=== PATIENT | male | born 1980 | race Caucasian/White ===

== ENCOUNTER 2017-03-23 14:45 | Emergency (ER) | payer OTHER, MEDICAID ==
[~2017-03-23] VITALS: Ht 175.3 cm; Wt 55.3 kg
[~2017-03-23 14:45] MED LIST: ANDROGEL2.5 G1 TD; AUGMENTIN 875875 MG PO; BENTYL20 MG PO; CLONAZEPAM; CLONAZEPAM 0.50.5 M1 PO; CREON 10 CAPSUL1 CA1 PER TUBE; CREON 10 CAPSUL1 CA1 PO; FENTANYL PA50 MCG/HR INTRADERM; FENTANYL PATCH75 MCG TRANSDERM; FLEXERIL PO; IBUPROFEN 600600 M1 PO; IBUPROFEN 800800 M1 PO; KEFLEX500 MG PO; LEVAQUIN 500 M500 MG PO; LIORESAL 10 MG10 MG PO; LISINOPRIL10 MG PO; MACROBID 100 M100 M1 PO; MEDROLDOSEPACK PO; MIRALAX17 GM PO; NORCO 5-325 TA1 EAC1 PO; NORCO 5-325 TA1 EACH PO; NORVASC5 MG PO; OXYCODONE HCL 55 MG PO; OXYCODONE HCL15 MG PO; OXYCONTIN10 M1 PO; OXYCONTIN30 MG PO; PANCREAZE 21,01 EACH PO; PAXIL20 MG PO; PERCOCET 5-3251 EACH PO; POTASSIUM20 PO; PRILOSEC 20 MG20 MG; PRILOSEC40 MG PO; PROAIR HFA8.5 GM INH; PYRIDIUM200 MG PO; ZANTAC 150MG T150 M1 PO; ZOFRAN ODT4 MG PO
[2017-03-23] MEDS ORDERED: SUBOXONE 8 MG-1 EAC3 PO (15:02)
[2017-03-23 15:33] LABS: ABSOLUTE BASOPHILS 0.1 thou/uL (0.0-0.2); ABSOLUTE EOSINOPHILS 0.3 thou/uL (0.0-0.7); ABSOLUTE LYMPHOCYTES 4.4 thou/uL (0.8-5.3); ABSOLUTE MONOCYTES 0.9 thou/uL (0.0-1.2); ABSOLUTE NEUTROPHILS 5.3 thou/uL (1.6-8.1); BASOPHILS 0.8 %; EOSINOPHILS 2.5 %; HEMATOCRIT 43.5 % (42.0-52.0); HEMOGLOBIN 14.7 gm/dL (14.0-18.0); LYMPHOCYTES 39.8 %; MCH 30.3 pg (26.0-34.0); MCHC 33.8 g/dL (28.0-37.0); MCV 89.6 fL (80.0-100.0); MONOCYTES 8.6 %; MPV 7.4 fl. (7.2-11.1); NUCLEATED RBCS 0 /100WBC; PLATELET COUNT* 283 thou/uL (150-400); POLYS 48.3 %; RBC 4.86 mil/uL (4.50-6.00); RDW-CV 14.1 % (10.5-14.5)
[2017-03-23 15:40] LABS: CALCIUM 8.9 mg/dL (8.5-10.1); CREATININE 0.7 mg/dL (0.6-1.3); POTASSIUM 3.5 mmol/L (3.5-5.1)
[2017-03-23 15:45] LABS: TOTAL BILIRUBIN 0.2 mg/dL (<0.1-1.0); TOTAL PROTEIN 7.7 g/dL (6.4-8.2)
[2017-03-23 16:50] VITALS: BP 119/74
== END 2017-03-23 16:53 | disposition home or self-care (01) ==
LOC: M.ERS 14:45
PROVIDERS: Physician Assistant
DX: M79.604 Pain in right leg (principal); M79.605 Pain in left leg; I10 Essential (primary) hypertension; F41.9 Anxiety disorder, unspecified; K21.9 Gastro-esophageal reflux disease without esophagitis; G89.29 Other chronic pain; F17.210 Nicotine dependence, cigarettes, uncomplicated; Z98.890 Other specified postprocedural states; Z88.0 Allergy status to penicillin; Z88.1 Allergy status to other antibiotic agents; Z88.5 Allergy status to narcotic agent; Z88.8 Allergy status to other drugs, medicaments and biological substances

== ENCOUNTER 2017-06-27 19:25 | Emergency (ER) | payer OTHER, MEDICAID ==
[~2017-06-27] VITALS: Ht 175.3 cm; Wt 54.0 kg
[~2017-06-27 19:25] MED LIST changes: +SUBOXONE 8 MG-1 EAC3 PO
[2017-06-27 20:11] LABS: ABSOLUTE BASOPHILS 0.1 thou/uL (0.0-0.2); ABSOLUTE EOSINOPHILS 0.3 thou/uL (0.0-0.7); ABSOLUTE LYMPHOCYTES 4.2 thou/uL (0.8-5.3); ABSOLUTE MONOCYTES 0.7 thou/uL (0.0-1.2); ABSOLUTE NEUTROPHILS 3.4 thou/uL (1.6-8.1); BASOPHILS 0.7 %; EOSINOPHILS 3.9 %; HEMATOCRIT 42.8 % (42.0-52.0); HEMOGLOBIN 14.3 gm/dL (14.0-18.0); LYMPHOCYTES 48.1 %; MCH 30.1 pg (26.0-34.0); MCHC 33.4 g/dL (28.0-37.0); MONOCYTES 8.3 %; MPV 7.8 fl. (7.2-11.1); NUCLEATED RBCS 0 /100WBC; PLATELET COUNT* 216 thou/uL (150-400); RBC 4.75 mil/uL (4.50-6.00); RDW-CV 13.9 % (10.5-14.5); WBC 8.8 thou/uL (4.0-11.0)
[2017-06-27 20:19] LABS: ANION GAP 7 mmol/L (7-16); BUN 11 mg/dL (7-18); CALCIUM 8.6 mg/dL (8.5-10.1); CHLORIDE 102 mmol/L (98-107); CO2 31 mmol/L (21-32); CREATININE 0.8 mg/dL (0.6-1.3); GLUCOSE 106 mg/dL (70-99); POTASSIUM 3.5 mmol/L (3.5-5.1); SODIUM 140 mmol/L (136-145)
[2017-06-27 20:26] LABS: ALKALINE PHOSPHATASE 62 U/L (46-116); LIPASE 74 U/L (73-393); SGOT 16 U/L (15-37); SGPT 18 U/L (30-65); TOTAL BILIRUBIN 0.3 mg/dL (<0.1-1.0); TROPONIN-I LEVEL <0.06 ng/mL (<0.06)
[2017-06-27] MEDS ORDERED: SCOPOLAMINE1 EACH TRANSDERM (22:04)
[2017-06-27] MEDS ORDERED: ATROVENT NASAL SPRAY NASAL (22:04)
[2017-06-27 22:11] VITALS: BP 107/70
--- NOTE | 2017-06-28 16:32 | EKG ---
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
== END 2017-06-27 22:13 | disposition home or self-care (01) ==
LOC: M.ERS 19:25
PROVIDERS: Personal Emergency Response Attendant
DX: R42 Dizziness and giddiness (principal); M79.1 Myalgia; I10 Essential (primary) hypertension; F41.9 Anxiety disorder, unspecified; K21.9 Gastro-esophageal reflux disease without esophagitis; G89.29 Other chronic pain; K86.1 Other chronic pancreatitis; Z90.49 Acquired absence of other specified parts of digestive tract

== ENCOUNTER 2017-09-12 21:21 | Emergency (ER) | payer OTHER, MEDICAID ==
[~2017-09-12] VITALS: Ht 175.3 cm; Wt 49.0 kg
[~2017-09-12 21:21] MED LIST changes: +ATROVENT NASAL SPRAY NASAL; +SCOPOLAMINE1 EACH TRANSDERM
[2017-09-12 22:09] LABS: ABSOLUTE EOSINOPHILS 0.1 thou/uL (0.0-0.7); ABSOLUTE LYMPHOCYTES 1.1 thou/uL (0.8-5.3); ABSOLUTE MONOCYTES 0.8 thou/uL (0.0-1.2); ABSOLUTE NEUTROPHILS 3.6 thou/uL (1.6-8.1); BASOPHILS 0.7 %; EOSINOPHILS 2.7 %; HEMATOCRIT 42.1 % (42.0-52.0); HEMOGLOBIN 14.4 gm/dL (14.0-18.0); MCH 30.7 pg (26.0-34.0); MCHC 34.1 g/dL (28.0-37.0); MCV 90.1 fL (80.0-100.0); MONOCYTES 13.5 %; MPV 7.9 fl. (7.2-11.1); NUCLEATED RBCS 0 /100WBC; PLATELET COUNT* 192 thou/uL (150-400); POLYS 64.1 %; RBC 4.68 mil/uL (4.50-6.00); RDW-CV 13.9 % (10.5-14.5); WBC 5.6 thou/uL (4.0-11.0)
[2017-09-12 22:18] LABS: CALCIUM 8.5 mg/dL (8.5-10.1); CREATININE 0.6 mg/dL (0.6-1.3); POTASSIUM 3.6 mmol/L (3.5-5.1)
[2017-09-12 22:22] LABS: ALBUMIN 3.8 g/dL (3.4-5.0); TOTAL BILIRUBIN 0.2 mg/dL (<0.1-1.0); TOTAL PROTEIN 7.1 g/dL (6.4-8.2)
[2017-09-12 22:52] VITALS: BP 106/76
== END 2017-09-12 22:54 | disposition home or self-care (01) ==
LOC: M.ERS 21:21
PROVIDERS: Nurse Practitioner
DX: R59.9 Enlarged lymph nodes, unspecified (principal); I10 Essential (primary) hypertension; F41.9 Anxiety disorder, unspecified; K21.9 Gastro-esophageal reflux disease without esophagitis; G89.29 Other chronic pain; F17.210 Nicotine dependence, cigarettes, uncomplicated; Z90.49 Acquired absence of other specified parts of digestive tract; Z88.1 Allergy status to other antibiotic agents; Z88.6 Allergy status to analgesic agent; Z88.8 Allergy status to other drugs, medicaments and biological substances

== ENCOUNTER 2017-10-13 02:41 | Emergency (ER) | payer OTHER, MEDICAID ==
[~2017-10-13] VITALS: Ht 175.3 cm; Wt 49.9 kg
[2017-10-13 03:34] LABS: ABSOLUTE BASOPHILS 0.1 thou/uL (0.0-0.2); ABSOLUTE EOSINOPHILS 0.3 thou/uL (0.0-0.7); ABSOLUTE LYMPHOCYTES 2.8 thou/uL (0.8-5.3); ABSOLUTE MONOCYTES 0.8 thou/uL (0.0-1.2); ABSOLUTE NEUTROPHILS 7.9 thou/uL (1.6-8.1); BASOPHILS 0.7 %; EOSINOPHILS 2.5 %; HEMATOCRIT 43.2 % (42.0-52.0); HEMOGLOBIN 14.4 gm/dL (14.0-18.0); LYMPHOCYTES 23.8 %; MCH 30.3 pg (26.0-34.0); MCHC 33.4 g/dL (28.0-37.0); MCV 90.6 fL (80.0-100.0); MONOCYTES 6.7 %; MPV 8.3 fl. (7.2-11.1); NUCLEATED RBCS 0 /100WBC; PLATELET COUNT* 214 thou/uL (150-400); POLYS 66.3 %; RBC 4.76 mil/uL (4.50-6.00)
[2017-10-13] MEDS ORDERED: IBUPROFEN 800800 M1 PO (04:17)
[2017-10-13 04:47] VITALS: BP 113/72
--- NOTE | 2017-10-13 13:36 | EKG ---
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 : 1980 Requested By: Dany Mendoza Order Number: [id number] MD: Marcos Gayle Measurements Intervals [place] Rate: 98 P: 78 [place]: 154 QRS: 66 QRSD: 93 T: 32 QT: 349 QTc: 446 Interpretive Statements Sinus rhythm incomplete RBBB Left atrial enlargement septal infarct, age indeterminate Compared to ECG 06/27/2017 19:30:37 Atrial abnormality now present Myocardial infarct finding now present Electronically Signed On 10-13-2017 13:36:07 CDT by Marcos Gayle [email or web address] <ELECTRONICALLY SIGNED> By: Marcos Gayle MD, [facility] 10/13/17 1336 0252 0252 Marcos Gayle MD, [facility] /EPI
== END 2017-10-13 04:47 | disposition home or self-care (01) ==
LOC: M.ERS 02:41
PROVIDERS: Emergency Medicine Emergency Medical Services
DX: S03.42XA Sprain of jaw, left side, initial encounter (principal); S46.812A Strain of other muscles, fascia and tendons at shoulder and upper arm level, left arm, initial encounter; I10 Essential (primary) hypertension; F41.9 Anxiety disorder, unspecified; K21.9 Gastro-esophageal reflux disease without esophagitis; F17.210 Nicotine dependence, cigarettes, uncomplicated; G89.29 Other chronic pain; Z88.2 Allergy status to sulfonamides; Z90.49 Acquired absence of other specified parts of digestive tract; Z88.1 Allergy status to other antibiotic agents; Z88.6 Allergy status to analgesic agent; Z88.8 Allergy status to other drugs, medicaments and biological substances; X58.XXXA Exposure to other specified factors, initial encounter; Y93.89 Activity, other specified; Y92.89 Other specified places as the place of occurrence of the external cause; Y99.8 Other external cause status

== ENCOUNTER 2017-11-02 21:13 | Inpatient (IN) | payer OTHER, MEDICAID ==
[~2017-11-02] VITALS: Ht 175.3 cm; Wt 49.9 kg
[2017-11-02 21:20] VITALS: BP 146/83
[2017-11-02 22:02] LABS: MPV 7.9 fl. (7.2-11.1); NUCLEATED RBCS 0 /100WBC; PLATELET COUNT* 277 thou/uL (150-400)
[2017-11-02 22:04] LABS: ABSOLUTE BASOPHILS 0.1 thou/uL (0.0-0.2); ABSOLUTE EOSINOPHILS 0.2 thou/uL (0.0-0.7); ABSOLUTE LYMPHOCYTES 1.9 thou/uL (0.8-5.3); ABSOLUTE MONOCYTES 1.9 thou/uL (0.0-1.2); ABSOLUTE NEUTROPHILS 12.7 thou/uL (1.6-8.1); BASOPHILS 0.6 %; EOSINOPHILS 1.2 %; HEMATOCRIT 39.8 % (42.0-52.0); HEMOGLOBIN 13.4 gm/dL (14.0-18.0); LYMPHOCYTES 11.6 %; MCH 29.8 pg (26.0-34.0); MCHC 33.6 g/dL (28.0-37.0); MCV 88.6 fL (80.0-100.0); MONOCYTES 11.1 %; POLYS 75.5 %; RDW-CV 15.1 % (10.5-14.5); WBC 16.8 thou/uL (4.0-11.0)
[2017-11-02 22:10] LABS: CALCIUM 8.6 mg/dL (8.5-10.1); CREATININE 0.7 mg/dL (0.6-1.3); POTASSIUM 3.2 mmol/L (3.5-5.1)
[2017-11-02 22:15] LABS: ALBUMIN 2.8 g/dL (3.4-5.0); TOTAL BILIRUBIN 0.4 mg/dL (<0.1-1.0); TOTAL PROTEIN 7.6 g/dL (6.4-8.2)
[2017-11-02 23:28] LABS: APTT 29.6 Seconds (25.0-31.3); INR 1.1; PROTIME 11.5 Seconds (9.20-11.50)
[2017-11-02 23:34] VITALS: BP 146/63
[2017-11-03] VITALS (12 sets, daily range): BP systolic 96–122; BP diastolic 51–76
--- NOTE | 2017-11-03 06:40 | NUR ---
Pt admitted from ED with pneumonia and possible sepsis. Pt states he has lost about 12 lbs in the past 3 months, and has eaten very little over the past several days. Pt is 5'9" and weighs 106.6 lbs. Pt states he is weak, but feeling hungry since receiving IVF and 1st dose of antibiotics. Pt's brought in meal from [place] [place], which he ate at CT; then pt called and asked fro turkey sandwich box lunch at 0400. VSS. On RA, sats 96-99%. Pt unable to sleep overnight; states it may be due to breathing treatments. C/O pain to chest with breathing, which has improved considerably since arrival to hospital. No complaints at this time. Will continue to monitor.
--- NOTE | 2017-11-03 13:46 | NUR ---
REPORT RECEIVED FROM ELLIS COPELAND. ASSESSMENT CHARTED. AFEBRILE. PT TELE STATUS. FLUIDS INFUSING AND MEDS GIVEN. ADEQUATE URINE OUTPUT. VITALS STABLE. POTASSIUM REPLACED. FAMILY AND PT UPDATED ON PLAN OF CARE. REPORT GIVEN TO CHARTER BUS DRIVER, ALL QUESTIONS ANSWERED. PT TRANSFERRED TO RM 223 WITH ALL BELONGINGS AT 1450.
--- NOTE | 2017-11-03 16:29 | NUR ---
PATIENT TRANSFER EARLIER FROM ICU VIA W/C REASSESSMENT COMPLETED, DEFER TO COMPTUER CHARTING. NO CHANGE FROM PREVIOUS ASSESSMENT EXCEPT PATIENT NOW ON ROOM AIR, 02 SAT 97%. CONTINUES TO BE SOA WITH ACTIVITY. REPORTING FEELING NAUSATED, CALL PLACED TO DR JEAN TO NOTIFY, ORDERS RECEIVED - PATIENT GIVEN IV ZOFRAN TO ASSIST WITH NAUSEA. INDUSTRIAL PAINTER TRACKING SR. ALERT ORIENTED, NO COMPLAINTS OF PAIN AT THIS TIME. IV FLUIDS INFUSING. CALL LIGHT WITHIN REACH. WILL CONTINUE WITH PLAN OF CARE.
[2017-11-04] VITALS: BP 123/73
[2017-11-04 04:00] VITALS: BP 115/86
--- NOTE | 2017-11-04 04:45 | NUR ---
ASSUMED PT CARE AT 1930. ASSESSMENT COMPLETED CHARTED. ABLE TO MAKE NEEDS KNOWN, UP AD CASTRO, IVF AND ABT RUNNING PER DR ORDERS, WITH SOME INTERMEDIATE LEFT SIDED PAIN. WILL CONTINUE TO MONITOR.
[2017-11-04 05:00] LABS: HEMATOCRIT 33.2 % (42.0-52.0); MCH 29.9 pg (26.0-34.0); MCHC 33.1 g/dL (28.0-37.0); MCV 90.3 fL (80.0-100.0); MPV 8.2 fl. (7.2-11.1); RBC 3.67 mil/uL (4.50-6.00); WBC 21.4 thou/uL (4.0-11.0)
[2017-11-04 05:41] LABS: ALBUMIN 2.3 g/dL (3.4-5.0); CALCIUM 8.1 mg/dL (8.5-10.1); CREATININE 0.6 mg/dL (0.6-1.3); MAGNESIUM 1.6 mg/dL (1.8-2.4); POTASSIUM 3.1 mmol/L (3.5-5.1); TOTAL BILIRUBIN 0.2 mg/dL (<0.1-1.0); TOTAL PROTEIN 5.7 g/dL (6.4-8.2)
[2017-11-04 08:06] VITALS: BP 129/86
--- NOTE | 2017-11-04 09:26 | NUR ---
ASSUMED CARE OF PT THIS AM AROUND 714- ROTARY DRILL OPERATOR IN PLACE ORDERED, TRACING SR- UPON ASSESSMENT PT NOTED TO BE RESTING IN BED, WATCHING TV- PT A&O X4- CONTINENT OF BOWEL AND BLADDER- UP AD-CASTRO IN ROOM, STEADY GAIT NOTED- DIMINISHED LUNG SOUNDS NOTED, DYSPNEA NOTED ON [id number] COUGH NOTED- VSS, O2 SAT 98% ON RA- ABDOMEN SOFT/FLAT/NON-TENDER, BS X4 QUADS- PT REPORTS LAST BM 6 DAYS AGO TO BE NORMAL FOR HIM- EXT RIGHT JUGULAR IV NOTED, IVF INFUSSING PRESCIBED- K+ NOTED AT 3.1 THIS AM AND MG AT 1.6- ELECTROLYTES CURRENTLY BEING REPLACED PER PROTOCOL- CULTURES REMAIN WITH NO GROWTH AT THIS TIME- GOOD PO INTAKE NOTED THIS AM WITH BREAKFAST- RATES PAIN 4/10 TO LEFT SIDE/HIP THIS, DENIES NEED FOR PAIN MEDICATION AT THIS TIME- CALL LIGHT AND PERSONAL BELONGINGS WITH IN REACH- HOURLY ROUNDS IN PLACE R/T SAFETY/NEEDS- ALL NEEDS MET AT THIS TIME-WCTM
[2017-11-04 12:01] VITALS: BP 125/83
[2017-11-04 15:44] LABS: MAGNESIUM 1.5 mg/dL (1.8-2.4); POTASSIUM 3.6 mmol/L (3.5-5.1)
[2017-11-04 16:21] VITALS: BP 115/77
--- NOTE | 2017-11-04 17:32 | NUR ---
PT MARSHALL RESTING IN BED, WATCHING TV, AT SIDE WITH KIDS VISITTING- NET DEVELOPER CONSULTANT CONTINUED THIS SHIFT INDICATED, TRACING SR- IV TO RIGHT JUGULAR IN PLACE WITH IVF INFUSSING PRESCRIBED- NEW ORDERS NOTED FOR LEVAQUIN TO BE D/C'D AND IV VANC AND IV ZOYSN AND GIVEN PRESICBED, NO ADVERSE REACTIONS TO NOTE- MRSA SWAB COMPLETED AND SENT TO LAB FOR TESTING THIS SHIFT PRESCIBED- K+ REDRAW POST REPLACEMENT NOTED TO BE 3.6- MG POST PO REPLACEMENT NOTED TO BE 1.5- IV MAG INFUSSING AT THIS TIME PER PROTOCOL WITH REDRAW SCHEDULED TO FOLLOW- NUTRITION CONSULT INTIATED R/T MALNUTRITION WITH BOOST TO BE GIVEN BETWEEN MEALS- PT DENIES ANY C/O PAIN/DISCOMFORT AT THIS TIME- CALL LIGHT AND PERSONAL BELONGINGS WITH IN REACH-PT MAKES NEEDS KNOWN- ALL NEEDS MET AT THIS TIME-WC
[2017-11-04 20:00] VITALS: BP 141/95
[2017-11-05] VITALS: BP 124/87
--- NOTE | 2017-11-05 03:44 | NUR ---
ASSUMED PT CARE AT 1930. ASSESSMENT COMPLETED CHARTED. ABLE TO MAKE NEEDS KNOWN, UP AD CASTRO, RESTING ON AND OFF THROUGHOUT THE NIGHT. HAVING SOME HOME TROUBLES THAT HE CONFIDED TO THIS NURSE ABOUT AND WAS STRESSED AND IN MORE PAIN THAN NORMAL. GAVE TYLENOL PER P.O. AND ONLY WANTED ONE TO HELP WITH THE PAIN AND HAS BEEN STATING HE WANTS TO GET OFF ALL PAIN MEDICATION FOR HIS CHILDREN. WILL CONTINUE TO MONITOR.
[2017-11-05 04:00] VITALS: BP 119/78
[2017-11-05 05:09] LABS: HEMATOCRIT 34.5 % (42.0-52.0); HEMOGLOBIN 11.2 gm/dL (14.0-18.0); MCH 29.3 pg (26.0-34.0); MCHC 32.5 g/dL (28.0-37.0); MCV 90.1 fL (80.0-100.0); MPV 7.7 fl. (7.2-11.1); RBC 3.84 mil/uL (4.50-6.00); RDW-CV 15.2 % (10.5-14.5); WBC 18.6 thou/uL (4.0-11.0)
[2017-11-05 05:36] LABS: ALBUMIN 2.1 g/dL (3.4-5.0); CALCIUM 8.2 mg/dL (8.5-10.1); CREATININE 0.6 mg/dL (0.6-1.3); MAGNESIUM 1.5 mg/dL (1.8-2.4); POTASSIUM 3.6 mmol/L (3.5-5.1); TOTAL BILIRUBIN 0.3 mg/dL (<0.1-1.0); TOTAL PROTEIN 6.5 g/dL (6.4-8.2)
[2017-11-05 08:00] VITALS: BP 115/77
[2017-11-05 11:47] LABS: URINE BILIRUBIN NEGATIVE (Negative); URINE BLOOD NEGATIVE (Negative); URINE CLARITY CLEAR; URINE COLOR YELLOW; URINE GLUCOSE-RANDOM NEGATIVE (Negative); URINE KETONES NEGATIVE (Negative); URINE LEUKOCYTES-REFLEX NEGATIVE (Negative); URINE NITRITE-REFLEX NEGATIVE (Negative); URINE PROTEIN NEGATIVE (Negative); URINE SPECIFIC GRAVITY <= 1.005 (1.005-1.030); URINE UROBILINOGEN 0.2 E.U./dl (0.2-1.0)
[2017-11-05 16:00] VITALS: BP 145/106
[2017-11-05 20:00] VITALS: BP 119/86
[2017-11-06 04:00] VITALS: BP 115/88
--- NOTE | 2017-11-06 04:03 | NUR ---
ASSUMED PT CARE AT 1930. ASSESSMENT COMPLETED CHARTED. PT RESTING IN BED BUT NOT SLEEPING MOST OF THE NIGHT. UP AD CASTRO, ABLE TO MAKE NEEDS KNOWN. POSSIBLE D/C TODAY. WILL CONTINUE TO MONITOR.
[2017-11-06 04:53] LABS: HEMATOCRIT 35.2 % (42.0-52.0); HEMOGLOBIN 11.6 gm/dL (14.0-18.0); MCH 29.5 pg (26.0-34.0); MCHC 33.1 g/dL (28.0-37.0); MCV 89.4 fL (80.0-100.0); MPV 7.6 fl. (7.2-11.1); RBC 3.94 mil/uL (4.50-6.00); RDW-CV 15.2 % (10.5-14.5); WBC 15.4 thou/uL (4.0-11.0)
[2017-11-06 05:05] LABS: ALBUMIN 2.4 g/dL (3.4-5.0); CALCIUM 8.3 mg/dL (8.5-10.1); CREATININE 0.6 mg/dL (0.6-1.3); MAGNESIUM 1.6 mg/dL (1.8-2.4); POTASSIUM 3.8 mmol/L (3.5-5.1); TOTAL BILIRUBIN 0.3 mg/dL (<0.1-1.0); TOTAL PROTEIN 6.8 g/dL (6.4-8.2)
[2017-11-06 08:15] VITALS: BP 123/81
[2017-11-06] MEDS ORDERED: AUGMENTIN 875-1 EACH PO (11:46)
[2017-11-06] MEDS ORDERED: PANCRELIPASE PO (11:46)
[2017-11-06] MEDS ORDERED: MUCINEX600 MG PO (11:46)
[2017-11-06] MEDS ORDERED: LEVAQUIN 500 M500 M2 PO (11:46)
[2017-11-06 12:27] VITALS: BP 123/81
--- NOTE | 2017-11-06 12:55 | NUR ---
SW met with pt to complete initial assessment and discuss dc planning as well as follow up services. Pt needing to establish with a PCP again and for outpatient nutritional counseling. SW provided resource/referral lists for both follow up needs. Pt said he went to Dr Griffin for a while but then said he did not have "flare ups" anymore so he realizes now he will reestablish care with someone. Pt said he would go to [facility] if he had to go there. Pt plans to dc home with family and his mother will pickle cutter pt; pt plans to pickle cutter his dtr from Kindergarten this afternoon. No other questions or dc needs expressed at this time.
--- NOTE | 2017-11-06 13:27 | NUR ---
PATIENT GIVEN DISCHARGE INSTRUCTIONS AND PRESCRIPTIONS AT THIS TIME. IV TO RIGHT NECK REMOVED. PATIENT AND FAMILY VERBALIZED UNDERSTANDING IN REGARDS TO FOLLOW UP APPOINTMENTS AND NEW MEDICATIONS. PATIENT GIVEN INFORMATION REGARDING OUTPATIENT NUTRITION SERVICES AND SPOKE WITH RFID SYSTEMS ARCHITECT PRIOR TO LEAVING. PATIENT ESCORTED OFF NURSING UNIT VIA WHEELCHAIR WITH ALL BELONGINGS.
== END 2017-11-06 13:27 | disposition home or self-care (01) | DRG 871 ==
LOC: M.ERS 21:13 → M.TBA-ER 22:26 → M.2W 22:26 → M.ICU 22:26 → M.2W 11-03 13:30
PROVIDERS: Nurse Practitioner Family; ADMIT Internal Medicine
DX: A41.9 Sepsis, unspecified organism (principal); J15.6 Pneumonia due to other Gram-negative bacteria; J18.1 Lobar pneumonia, unspecified organism; K86.1 Other chronic pancreatitis; Z68.1 Body mass index [BMI] 19.9 or less, adult; I10 Essential (primary) hypertension; F41.9 Anxiety disorder, unspecified; R63.4 Abnormal weight loss; K21.9 Gastro-esophageal reflux disease without esophagitis; F17.210 Nicotine dependence, cigarettes, uncomplicated; Z90.49 Acquired absence of other specified parts of digestive tract; Z79.899 Other long term (current) drug therapy; Z88.1 Allergy status to other antibiotic agents; Z88.2 Allergy status to sulfonamides; Z88.8 Allergy status to other drugs, medicaments and biological substances

== ENCOUNTER 2017-11-30 18:21 | Emergency (ER) | payer OTHER, MEDICAID ==
[~2017-11-30] VITALS: Ht 175.3 cm; Wt 49.4 kg
[~2017-11-30 18:21] MED LIST changes: +AUGMENTIN 875-1 EACH PO; +LEVAQUIN 500 M500 M2 PO; +MUCINEX600 MG PO; +PANCRELIPASE PO
[2017-11-30 18:54] LABS: ABSOLUTE BASOPHILS 0.1 thou/uL (0.0-0.2); ABSOLUTE EOSINOPHILS 0.5 thou/uL (0.0-0.7); ABSOLUTE LYMPHOCYTES 2.8 thou/uL (0.8-5.3); ABSOLUTE MONOCYTES 0.5 thou/uL (0.0-1.2); ABSOLUTE NEUTROPHILS 3.6 thou/uL (1.6-8.1); EOSINOPHILS 7.3 %; HEMATOCRIT 42.4 % (42.0-52.0); HEMOGLOBIN 14.2 gm/dL (14.0-18.0); LYMPHOCYTES 37.2 %; MCH 29.7 pg (26.0-34.0); MCHC 33.4 g/dL (28.0-37.0); MONOCYTES 6.1 %; MPV 7.6 fl. (7.2-11.1); NUCLEATED RBCS 0 /100WBC; PLATELET COUNT* 265 thou/uL (150-400); POLYS 48.4 %; RBC 4.76 mil/uL (4.50-6.00); RDW-CV 14.4 % (10.5-14.5); WBC 7.5 thou/uL (4.0-11.0)
[2017-11-30 19:09] LABS: ANION GAP 6 mmol/L (7-16); BUN 5 mg/dL (7-18); CALCIUM 8.3 mg/dL (8.5-10.1); CHLORIDE 101 mmol/L (98-107); CO2 32 mmol/L (21-32); CREATININE 0.8 mg/dL (0.6-1.3); GLUCOSE 103 mg/dL (70-99); POTASSIUM 3.5 mmol/L (3.5-5.1); SODIUM 139 mmol/L (136-145)
[2017-11-30 19:20] LABS: ALBUMIN 4.4 g/dL (3.4-5.0); ALKALINE PHOSPHATASE 77 U/L (46-116); LIPASE 81 U/L (73-393); NT-PRO BRAIN NAT PEPTIDE 100 pg/mL (<300); SGOT 19 U/L (15-37); SGPT 24 U/L (30-65); TOTAL BILIRUBIN 0.4 mg/dL (<0.1-1.0); TOTAL PROTEIN 8.5 g/dL (6.4-8.2); TROPONIN-I LEVEL <0.06 ng/mL (<0.06)
[2017-11-30] MEDS ORDERED: NABUMETONE 750750 M1 PO (20:08)
[2017-11-30] MEDS ORDERED: VENTOLIN HFA 1818 GM INH (20:08)
[2017-11-30] MEDS ORDERED: MEDROLDOSEPACK PO (20:08)
[2017-11-30] MEDS ORDERED: ALBUTEROL2.5 MG/31 INH (20:23)
[2017-11-30] MEDS ORDERED: NEBULIZER MISCELL (20:23)
[2017-11-30 20:37] VITALS: BP 121/82
--- NOTE | 2017-12-01 15:09 | EKG ---
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: : 1980 Requested By: Kamini Oliver Order Number: [id number] MD: Manuel Leonard Measurements Intervals [place] Rate: 80 P: 68 [place]: 141 QRS: 55 QRSD: 96 T: 38 QT: 373 QTc: 431 Interpretive Statements Sinus rhythm Probable left ventricular hypertrophy Compared to ECG 10/13/2017 02:52:21 Right bundle-branch block no longer present Atrial abnormality no longer present Myocardial infarct finding no longer present Electronically Signed On 12-01-2017 15:09:01 CDT by Manuel Leonard [email or web address] <ELECTRONICALLY SIGNED> By: Crys Leonard MD, [facility] 12/01/17 1509 1847 1847 Crys Leonard MD, [facility] /EPI
== END 2017-11-30 20:39 | disposition home or self-care (01) ==
LOC: M.ERS 18:21
PROVIDERS: Nurse Practitioner Family
DX: J20.9 Acute bronchitis, unspecified (principal); M54.6 Pain in thoracic spine; R42 Dizziness and giddiness; I10 Essential (primary) hypertension; F41.9 Anxiety disorder, unspecified; K21.9 Gastro-esophageal reflux disease without esophagitis; G89.29 Other chronic pain; F17.210 Nicotine dependence, cigarettes, uncomplicated; Z90.49 Acquired absence of other specified parts of digestive tract; Z88.2 Allergy status to sulfonamides; Z88.1 Allergy status to other antibiotic agents; Z88.8 Allergy status to other drugs, medicaments and biological substances

== ENCOUNTER 2018-01-05 20:31 | Emergency (ER) | payer OTHER, MEDICAID ==
[~2018-01-05] VITALS: Ht 175.3 cm; Wt 49.0 kg
[~2018-01-05 20:31] MED LIST changes: +ALBUTEROL2.5 MG/31 INH; +NABUMETONE 750750 M1 PO; +NEBULIZER MISCELL; +VENTOLIN HFA 1818 GM INH
[2018-01-05 22:21] LABS: ABSOLUTE BASOPHILS 0.1 thou/uL (0.0-0.2); ABSOLUTE EOSINOPHILS 0.5 thou/uL (0.0-0.7); ABSOLUTE LYMPHOCYTES 2.5 thou/uL (0.8-5.3); ABSOLUTE MONOCYTES 0.6 thou/uL (0.0-1.2); ABSOLUTE NEUTROPHILS 4.4 thou/uL (1.6-8.1); BASOPHILS 0.8 %; EOSINOPHILS 5.8 %; HEMATOCRIT 41.5 % (42.0-52.0); HEMOGLOBIN 13.6 gm/dL (14.0-18.0); LYMPHOCYTES 31.3 %; MCH 29.5 pg (26.0-34.0); MCHC 32.8 g/dL (28.0-37.0); MCV 90.2 fL (80.0-100.0); MONOCYTES 7.7 %; MPV 8.5 fl. (7.2-11.1); NUCLEATED RBCS 0 /100WBC; PLATELET COUNT* 286 thou/uL (150-400); POLYS 54.4 %; RDW-CV 14.1 % (10.5-14.5); WBC 8.1 thou/uL (4.0-11.0)
[2018-01-05 22:25] LABS: CALCIUM 8.5 mg/dL (8.5-10.1); CREATININE 0.8 mg/dL (0.6-1.3); POTASSIUM 3.9 mmol/L (3.5-5.1)
[2018-01-05 22:30] LABS: ALBUMIN 4.1 g/dL (3.4-5.0); TOTAL BILIRUBIN 0.3 mg/dL (<0.1-1.0); TOTAL PROTEIN 7.4 g/dL (6.4-8.2)
[2018-01-05 23:02] LABS: URINE BILIRUBIN NEGATIVE (Negative); URINE BLOOD NEGATIVE (Negative); URINE CLARITY CLEAR; URINE COLOR YELLOW; URINE GLUCOSE-RANDOM NEGATIVE (Negative); URINE KETONES NEGATIVE (Negative); URINE LEUKOCYTES-REFLEX NEGATIVE (Negative); URINE NITRITE-REFLEX NEGATIVE (Negative); URINE PROTEIN NEGATIVE (Negative); URINE UROBILINOGEN 0.2 E.U./dl (0.2-1.0)
[2018-01-05 23:11] LABS: AMP/METHAMP Negative (Negative); BARBITURATES Negative (Negative); BENZODIAZEPINES Negative (Negative); COCAINE Negative (Negative); METHADONE Negative (Negative); OPIATES Negative (Negative); PCP Negative (Negative); THC Negative (Negative)
[2018-01-05] MEDS ORDERED: AMOXICILLIN875 MG PO (23:25)
[2018-01-05] MEDS ORDERED: PREDNISONE 20 M20 M1 PO (23:25)
[2018-01-05] MEDS ORDERED: FLONASE 0.05%50 MCG NASAL (23:25)
[2018-01-05 23:45] VITALS: BP 110/85
--- NOTE | 2018-01-07 11:32 | EKG ---
[place] [address] ELECTROCARDIOGRAM REPORT Name: DAISY DURANT [id number] Admission: 01/05/18 Attend Phys: Discharge: 01/05/18 Date of : 84 Report #: [id number] THIS REPORT FOR: //name// [facility] ED Test Date: 2018-01-05 Test Time: 20:35:33 Pat Name: DAISY DURANT Department: Room: Gender: M Director Park: : 1980 Requested By: Latia Olea Order Number: [id number] Shena MD: Marcos Gayle Measurements Intervals [place] Rate: 82 P: 75 [place]: 148 QRS: 63 QRSD: 90 T: 49 QT: 362 QTc: 423 Interpretive Statements Sinus rhythm RSR' in V1 or V2, probably normal variant Compared to ECG 11/30/2017 18:47:44 no change Electronically Signed On 01-07-2018 11:31:53 HOLISTIC SPECIALIST by Marcos Gayle [email or web address] <ELECTRONICALLY SIGNED> By: Marcos Gayle MD, [facility] 01/07/18 1131 34 34 Marcos Gayle MD, FACC /EPI
== END 2018-01-05 23:53 | disposition home or self-care (01) ==
LOC: M.ERS 20:31
PROVIDERS: Personal Emergency Response Attendant
DX: M94.0 Chondrocostal junction syndrome [Tietze] (principal); J32.9 Chronic sinusitis, unspecified; I10 Essential (primary) hypertension; F41.9 Anxiety disorder, unspecified; K21.9 Gastro-esophageal reflux disease without esophagitis; G89.29 Other chronic pain; Z87.01 Personal history of pneumonia (recurrent); Z90.49 Acquired absence of other specified parts of digestive tract; Z87.891 Personal history of nicotine dependence; Z88.1 Allergy status to other antibiotic agents; Z88.2 Allergy status to sulfonamides; Z88.8 Allergy status to other drugs, medicaments and biological substances

== ENCOUNTER 2018-03-13 00:08 | Emergency (ER) | payer OTHER, MEDICAID ==
[~2018-03-13] VITALS: Ht 175.3 cm; Wt 49.9 kg
[~2018-03-13 00:08] MED LIST changes: +AMOXICILLIN875 MG PO; +FLONASE 0.05%50 MCG NASAL; +PREDNISONE 20 M20 M1 PO
[2018-03-13 00:58] LABS: ABSOLUTE BASOPHILS 0.1 thou/uL (0.0-0.2); ABSOLUTE EOSINOPHILS 0.3 thou/uL (0.0-0.7); ABSOLUTE LYMPHOCYTES 1.9 thou/uL (0.8-5.3); ABSOLUTE MONOCYTES 0.5 thou/uL (0.0-1.2); BASOPHILS 0.8 %; EOSINOPHILS 3.7 %; HEMATOCRIT 41.2 % (42.0-52.0); HEMOGLOBIN 13.9 gm/dL (14.0-18.0); LYMPHOCYTES 21.6 %; MCH 29.9 pg (26.0-34.0); MCHC 33.8 g/dL (28.0-37.0); MCV 88.5 fL (80.0-100.0); MONOCYTES 5.3 %; MPV 7.2 fl. (7.2-11.1); NUCLEATED RBCS 0 /100WBC; PLATELET COUNT* 286 thou/uL (150-400); POLYS 68.6 %; RBC 4.65 mil/uL (4.50-6.00); RDW-CV 13.4 % (10.5-14.5); WBC 8.8 thou/uL (4.0-11.0)
[2018-03-13 01:04] LABS: ANION GAP 9 mmol/L (7-16); BUN 10 mg/dL (7-18); CALCIUM 8.5 mg/dL (8.5-10.1); CHLORIDE 103 mmol/L (98-107); CO2 31 mmol/L (21-32); CREATININE 0.7 mg/dL (0.6-1.3); GLUCOSE 162 mg/dL (70-99); POTASSIUM 3.7 mmol/L (3.5-5.1); SODIUM 143 mmol/L (136-145)
[2018-03-13 01:23] LABS: ALKALINE PHOSPHATASE 65 U/L (46-116); CK-MB MASS 0.9 ng/mL (<0.5-3.6); LIPASE 61 U/L (73-393); MAGNESIUM 1.7 mg/dL (1.8-2.4); NT-PRO BRAIN NAT PEPTIDE 23 pg/mL (<300); SGOT 11 U/L (15-37); SGPT 22 U/L (30-65); TOTAL BILIRUBIN 0.1 mg/dL (<0.1-1.0); TOTAL PROTEIN 7.4 g/dL (6.4-8.2); TROPONIN-I LEVEL <0.06 ng/mL (<0.06)
[2018-03-13 01:24] LABS: APTT 26.5 Seconds (25.0-31.3); INR 1.1; PROTIME 11.3 Seconds (9.20-11.50)
[2018-03-13 01:36] VITALS: BP 124/70
--- NOTE | 2018-03-13 18:46 | EKG ---
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 : 1980 Requested By: Leonid Bender Order Number: [id number] MD: Jake Palomino Measurements Intervals [place] Rate: 115 P: 82 [place]: 160 QRS: 66 QRSD: 92 T: 40 QT: 308 QTc: 426 Interpretive Statements Sinus tachycardia Biatrial enlargement Probable left ventricular hypertrophy Baseline wander in lead(s) I,aVL,V3 Compared to ECG 01/05/2018 20:35:33 Atrial abnormality now present Sinus rhythm no longer present Electronically Signed On 03-13-2018 18:46:43 DISTRICT FIRE MANAGEMENT OFFICER by Jake Palomino [email or web address] <ELECTRONICALLY SIGNED> By: Jake Palomino MD, FACC 03/13/18 1846 0015 0015 Jake Palomino MD, [facility] /EPI
== END 2018-03-13 01:36 | disposition home or self-care (01) ==
LOC: M.ERS 00:08
PROVIDERS: Family Medicine
DX: R07.89 Other chest pain (principal); I10 Essential (primary) hypertension; F41.9 Anxiety disorder, unspecified; K21.9 Gastro-esophageal reflux disease without esophagitis; G89.29 Other chronic pain; Z87.891 Personal history of nicotine dependence; Z88.2 Allergy status to sulfonamides; Z88.1 Allergy status to other antibiotic agents; Z88.6 Allergy status to analgesic agent; Z88.8 Allergy status to other drugs, medicaments and biological substances; Z90.49 Acquired absence of other specified parts of digestive tract; Z87.01 Personal history of pneumonia (recurrent)

== ENCOUNTER 2018-08-28 21:19 | Emergency (ER) | payer OTHER, MEDICAID ==
[~2018-08-28] VITALS: Ht 175.3 cm; Wt 50.9 kg
[2018-08-28 21:44] LABS: ABSOLUTE BASOPHILS 0.1 thou/uL (0.0-0.2); ABSOLUTE EOSINOPHILS 0.1 thou/uL (0.0-0.7); ABSOLUTE LYMPHOCYTES 1.7 thou/uL (0.8-5.3); ABSOLUTE MONOCYTES 0.5 thou/uL (0.0-1.2); ABSOLUTE NEUTROPHILS 9.7 thou/uL (1.6-8.1); BASOPHILS 0.5 %; EOSINOPHILS 1.1 %; HEMATOCRIT 43.5 % (42.0-52.0); HEMOGLOBIN 14.7 gm/dL (14.0-18.0); LYMPHOCYTES 13.8 %; MCH 29.8 pg (26.0-34.0); MCHC 33.7 g/dL (28.0-37.0); MCV 88.5 fL (80.0-100.0); MONOCYTES 4.1 %; MPV 7.2 fl. (7.2-11.1); NUCLEATED RBCS 0 /100WBC; PLATELET COUNT* 317 thou/uL (150-400); POLYS 80.5 %; RBC 4.92 mil/uL (4.50-6.00); RDW-CV 12.7 % (10.5-14.5); WBC 12.1 thou/uL (4.0-11.0)
[2018-08-28 21:51] LABS: ANION GAP 9 mmol/L (7-16); BUN 8 mg/dL (7-18); CALCIUM 9.2 mg/dL (8.5-10.1); CHLORIDE 98 mmol/L (98-107); CO2 30 mmol/L (21-32); CREATININE 0.9 mg/dL (0.6-1.3); GLUCOSE 143 mg/dL (70-99); SODIUM 137 mmol/L (136-145)
[2018-08-28 21:55] LABS: POTASSIUM 2.8 mmol/L (3.5-5.1)
[2018-08-28 21:58] LABS: APTT 26.2 Seconds (25.0-31.3); INR 1.1; PROTIME 11.6 Seconds (9.20-11.50)
[2018-08-28 22:01] LABS: ALBUMIN 4.6 g/dL (3.4-5.0); ALKALINE PHOSPHATASE 68 U/L (46-116); LIPASE 41 U/L (73-393); MAGNESIUM 1.4 mg/dL (1.8-2.4); NT-PRO BRAIN NAT PEPTIDE 21 pg/mL (<300); SGOT 16 U/L (15-37); SGPT 23 U/L (30-65); TOTAL BILIRUBIN 0.5 mg/dL (<0.1-1.0); TOTAL PROTEIN 8.7 g/dL (6.4-8.2); TROPONIN-I LEVEL <0.06 ng/mL (<0.06)
[2018-08-28 23:52] LABS: MAGNESIUM 1.6 mg/dL (1.8-2.4); POTASSIUM 3.8 mmol/L (3.5-5.1)
[2018-08-28 23:57] LABS: URINE BILIRUBIN NEGATIVE (Negative); URINE BLOOD NEGATIVE (Negative); URINE CLARITY CLEAR; URINE COLOR STRAW; URINE GLUCOSE-RANDOM NEGATIVE (Negative); URINE KETONES NEGATIVE (Negative); URINE LEUKOCYTES NEGATIVE (Negative); URINE NITRITE NEGATIVE (Negative); URINE PROTEIN NEGATIVE (Negative); URINE SPECIFIC GRAVITY <= 1.005 (1.005-1.030); URINE UROBILINOGEN 0.2 E.U./dl (0.2-1.0)
[2018-08-29 00:04] LABS: AMP/METHAMP Negative (Negative); BARBITURATES Negative (Negative); BENZODIAZEPINES Negative (Negative); COCAINE Negative (Negative); METHADONE Negative (Negative); OPIATES Negative (Negative); PCP Negative (Negative); THC Negative (Negative)
[2018-08-29] MEDS ORDERED: POTASSIUM20 PO (00:23)
[2018-08-29] MEDS ORDERED: MAGOX 400400 MG PO (00:23)
[2018-08-29] MEDS ORDERED: ATIVAN1 M1 PO (00:25)
[2018-08-29 01:06] VITALS: BP 115/76
--- NOTE | 2018-08-29 14:02 | EKG ---
[place] [address] ELECTROCARDIOGRAM REPORT Name: DAISY DURANT II [id number] Admission: 08/28/18 Attend Phys: Discharge: 08/29/18 Date of : 84 Report #: [id number] THIS REPORT FOR: //name// [facility] ED Test Date: 2018-08-28 Test Time: 21:28:16 Pat Name: DAISY DURANT Department: Room: Gender: M Skimmer: EB : 1980 Requested By: Dany Mendoza Order Number: [id number] MD: Ayaan Zabala Measurements Intervals [place] Rate: 132 P: 83 NC: 153 QRS: 75 QRSD: 94 T: 28 QT: 302 QTc: 448 Interpretive Statements Sinus tachycardia Probable left atrial enlargement Compared to ECG 03/13/2018 00:15:12 No significant changes Electronically Signed On 08-29-2018 14:02:36 CDT by Ayaan Zabala [email or web address] <ELECTRONICALLY SIGNED> By: Ayaan Zabala MD, [facility] 08/29/18 1402 27 Ayaan Zabala MD, FACC /EPI
== END 2018-08-29 01:07 | disposition home or self-care (01) ==
LOC: M.ERS 21:19
PROVIDERS: Emergency Medicine Emergency Medical Services
DX: E87.6 Hypokalemia (principal); R00.2 Palpitations; I10 Essential (primary) hypertension; F41.9 Anxiety disorder, unspecified; K21.9 Gastro-esophageal reflux disease without esophagitis; G89.29 Other chronic pain; Z87.891 Personal history of nicotine dependence; Z88.1 Allergy status to other antibiotic agents; Z88.2 Allergy status to sulfonamides; Z88.6 Allergy status to analgesic agent; Z88.8 Allergy status to other drugs, medicaments and biological substances; Z90.49 Acquired absence of other specified parts of digestive tract; Z87.01 Personal history of pneumonia (recurrent); Z79.899 Other long term (current) drug therapy